=== PATIENT | male | born 1975 | race Caucasian/White ===

== ENCOUNTER → 2018-04-21 | Outpatient (CLI) | payer BC | LOC: M.RAD 15:06 | DX: D72.829 Elevated white blood cell count, unspecified (principal); I10 Essential (primary) hypertension ==

== ENCOUNTER → 2019-08-22 | Outpatient (CLI) | payer BC ==
--- NOTE | 2019-08-22 17:20 | CARDNUC ---
[place] [address] CARDIAC NUCLEAR IMAGING REPORT Name: DERICK FLORES Room: [facility]#: [id number] Admission: 08/22/19 Attend Phys: Edson Brothers, Discharge: Date of : 73 Date of Service: 08/22/19 1720 Report #: [id number] THIS REPORT FOR: //name// APPROVED REPORT Imaging Protocol: Rest Tc-99m/Stress Tc-99m 1 day Study performed: 08/22/2019 14:14:20 Indication: Chest pain, Palpitations. Patient Location: Out-Patient Stress Tech: Vanda Soares Stress Nurse: Jolene Okeefe RN NM Tech:NABOR Wills Ht: 5 ft 7 in Wt: 200 lbs BSA: 2.02 m2 BMI: 31.32 Medical History Medical History: Angina, Current Smoker, HTN, Seizures, Weakness, Head Injury, Unsteadiness. Medications: Metoprolol, Lisinopril, Amlodipine. Allergies: Levofloxacin, Phenytoin, Penicillin. Cardiac Risk Factors: Age, Current Smoker, FHX of CAD, HTN. Previous Cardiac Procedures: None Pretest Chest Pain Characteristics: No chest pain Exercise History: Indeterminate Physical Disabilities: HX of falls/seizures, Head injury, unsteadiness. Meds Held (24 hrs): Metoprolol. Resting Data Rest SPECT myocardial perfusion imaging was performed in supine position 30 minutes following the intravenous injection of 10.7 mCi of Tc-99m Sestamibi. Time of rest injection: 1300 Date: 08/22/2019 The images were gated to evaluate regional wall motion and calculate left ventricular ejection fraction. Administration Route: IV Administration Site: Right AC Exercise Stress At peak stress, the patient was injected intravenously with 34.9mCi of Tc-99m Sestamibi. Time of stress injection: 1430 Date: 08/22/2019 Administration Route: [place] [address] CARDIAC NUCLEAR IMAGING REPORT Name: DERICK FLORES Room: [facility]#: [id number] Admission: 08/22/19 Attend Phys: Edson Brothers, Discharge: Date of : 73 Date of Service: 08/22/19 1720 Report #: [id number] Administration Site: Right AC Gated Stress SPECT was performed 30 minutes after stress injection. The images were gated to evaluate regional wall motion and calculate left ventricular ejection fraction. Prone imaging was performed. Stress Test Details Stress Test: Exercise stress testing was performed using a Marty protocol. HR Max Heart Rate (APMHR): 175 bpm Resting HR: 84 bpm Target HR (85% APMHR): 148 bpm Max HR Achieved: 160 bpm % of APMHR: 91 Recovery HR: 98 bpm HR response to stress: Normal HR response to stress BP Resting BP: 129/86 mmHg Max BP: 176/83 mmHg Recovery BP: 128/83 mmHg BP response to stress: Normal blood pressure response to stress. ECG Resting ECG: Sinus Rhythm Stress ECG: Sinus Tachycardia ST Change: None Arrhythmia: None Recovery ECG: Sinus Rhythm Recovery ST Change: None Recovery Arrhythmia: None Clinical Reason for Termination: Completed protocol, Maximal effort Stress Symptoms: Dyspnea, Leg Fatigue. Exercise duration: 10 min 40 sec Exercise capacity: 11.79 METs Overall Exercise Capacity for Age: Normal The patient tolerated standard Marty protocol exercise without significant cardiac symptoms. Nurse Comments A 44 year old male presented for Marty Protocol Nuclear Stress Test r/t chest pain and strong family HX of CAD. Treadmill well tolerated. Recovery unremarkable. Patient [place] [address] CARDIAC NUCLEAR IMAGING REPORT Name: DERICK FLORES Room: [facility]#: [id number] Admission: 08/22/19 Attend Phys: Edson Barnhart Julian, Discharge: Date of : 73 Date of Service: 08/22/19 1720 Report #: [id number] Medicine for imaging. Patient was stable and stated he felt good at that time. Stress ECG Conclusion The baseline 12-lead EKG shows sinus rhythm without significant ST segment or T wave abnormality. EKGs obtained during and post exercise stress shows sinus rhythm and sinus tachycardia with no significant ST segment or T-wave changes when compared to baseline. There were no stress-induced arrhythmias. Study Quality Study: Good Artifact: No artifact Study Data At rest, the left ventricular ejection fraction was 67%.. Post stress, the left ventricular ejection was 64%.. TID = 0.91. Perfusion Perfusion images obtained at rest and post exercise stress show uniform uptake of the radioisotope throughout the myocardium without defect. There were no defects to suggest infarct or ischemia. Wall Motion Normal left ventricular wall motion. Nuclear Conclusion ECG Findings: negative for ischemia Clinical Findings: negative for ischemia Nuclear Findings: negative for ischemia Exercise Capacity: normal Left Ventricular Function: normal Risk Study: low Myocardial perfusion images show no defect to suggest infarct or ischemia. Left ventricular systolic function is normal on gated studies. This is a low risk study. <Conclusion> The baseline 12-lead EKG shows sinus rhythm without significant ST segment or T wave abnormality. EKGs obtained during and post exercise stress shows sinus rhythm and sinus tachycardia with [place] [address] CARDIAC NUCLEAR IMAGING REPORT Name: DERICK FLORES Room: [facility]#: [id number] Admission: 08/22/19 Attend Phys: Edson Brothers, Discharge: Date of : 73 Date of Service: 08/22/19 1720 Report #: [id number] segment or T-wave changes when compared to baseline. There were no stress-induced arrhythmias. <ELECTRONICALLY SIGNED> By: Satish Reardon MD, FACC 08/22/191719 19 19 Satish Reardon MD, FACC /INF
== END ==
LOC: M.NUC 07-27 14:39
DX: I10 Essential (primary) hypertension (principal); R07.9 Chest pain, unspecified; R00.2 Palpitations; F17.210 Nicotine dependence, cigarettes, uncomplicated; Z79.899 Other long term (current) drug therapy

== ENCOUNTER → 2020-08-27 | Outpatient (CLI) | payer OTHER | LOC: M.CT 08:15 | PROVIDERS: ATTEND Family Medicine | DX: R07.9 Chest pain, unspecified (principal); Z82.49 Family history of ischemic heart disease and other diseases of the circulatory system ==